=== PATIENT | female | born 1975 | race Caucasian/White ===

== ENCOUNTER 2019-08-01 12:07 | Inpatient (IN) | payer OTHER ==
[2019-08-01 14:40] VITALS: BMI 36.2
--- NOTE | 2019-08-01 16:05 | HP ---
CIWA Score Nausea/Vomitin Muscle Tremors: 4-Moderate,w/Arms Extend Anxiety: 1-Mildly Anxious Agitation: 0-Normal Activity Paroxysmal Sweats: 2 Orientation: 0-Oriented Tacttile Disturbances: 0-None Auditory Disturbances: 0-None Visual Disturbances: 0-None Headache: 3-Moderate CIWA-Ar Total Score: 13 - Admission Criteria OASAS Guidelines: Admission for Medically Managed Detox: Requires at least one of the followin. CIWA greater than 12 2. Seizures within the past 24 hours 3. Delirium tremens within the past 24 hours 4. Hallucinations within the past 24 hours 5. Acute intervention needed for co occurring medical disorder 6. Acute intervention needed for co occurring psychiatric disorder 7. Severe withdrawal that cannot be handled at a lower level of care (continued vomiting, continued diarrhea, abnormal vital signs) requiring intravenous medication and/or fluids 8. Admission ROS [facility] Chief Complaint: "plan for both detox and rehab" Allergies/Adverse Reactions: Allergies Allergy/AdvReac Type Severity Reaction Status Date / Time aspirin Allergy Verified 08/01/19 14:33 sulfamethoxazole Allergy Verified 08/01/19 14:32 [From Bactrim] trimethoprim [From Bactrim] Allergy Verified 08/01/19 14:32 History of Present Illness: 44 year old female with a past medical history of asthma, thalassemia/sickle cell trait and alcohol abuse presents for both detox and rehab. Was recently in detox at [facility] last Monday and discharged last . That was her first detox. Took the same dose of librium all of those days, after she left detox, she experienced symptoms. Alcohol: last drink yesterday (6 pack beer), had not drank from detox until yesterday. Has tremors. Denies alcohol withdrawal seizures. 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 Loss EENT: reports: Nose Congestion Respiratory: reports: Cough, Shortness of Breath Cardiac: reports: Lightheadedness GI: reports: Diarrhea, Nausea : reports: No Symptoms Reported Musculoskeletal: reports: Back Pain, Joint Pain Integumentary: reports: No Symptoms Reported Neuro: reports: Headache Endocrine: reports: No Symptoms Reported Hematology: reports: Anemia (Thalassemia/sickle cell trait) Psychiatric: reports: Judgement Intact, Mood/Affect Appropiate, Orientated x3, Depressed Patient History - Substances abused Alcohol Frequency: Daily Amount used: 18 PACK BEER Age of first use: 16 Date of last use: 07/31/19 Admission Physical Exam BHS - Vital Signs Vital Signs: Vital Signs - 24 hr 08/01/19 08/01/19 14:33 15:19 Temperature 98.7 F 98.7 F Pulse Rate 76 76 Respiratory 18 18 Rate Blood Pressure 122/90 122/90 Urine Drug Screen - Test Device Lot number: [id number] Expiration date: 03/29/21 - Control Is test valid?: Yes - Results Urine drug screen results: BZO-Benzodiazepines
[2019-08-01] MEDS ORDERED: BISMUTH SUBSALICYLATE 524 MG/30 ML UD PO PRN (16:22)
[2019-08-01] MEDS ORDERED: MAG HYDROX/AL HYDROX/SIMETH 30 ML UNIT-DOSE CUP PO PRN (16:22)
[2019-08-01] MEDS ORDERED: chlordiazePOXIDE HCL 10 MG CAPSULE PO PRN (16:22)
[2019-08-01] MEDS ORDERED: MAGNESIUM HYDROX 2400MG/30ML ORAL SUSPENSION 30 ML CUP PO PRN (16:22)
[2019-08-01] MEDS ORDERED: MENTHOL/PHENOL 1 EACH UD MM PRN (16:22)
[2019-08-01] MEDS ORDERED: hydrOXYzine PAMOATE 25 MG CAPSULE (FP) PO PRN (16:22)
[2019-08-01] MEDS ORDERED: IBUPROFEN 400 MG TABLET (FP) PO PRN (16:22)
[2019-08-01] MEDS ORDERED: MELATONIN 5 MG TABLETS PO PRN (16:22)
[2019-08-01] MEDS ORDERED: ACETAMINOPHEN 325 MG TABLET (FP) PO PRN ×2 (16:22)
[2019-08-01] MEDS ORDERED: MAGNESIUM CITRATE 300 ML BOTTLE PO PRN (16:22)
[2019-08-01] MEDS ORDERED: METHOCARBAMOL 500 MG TABLET PO PRN (16:22)
--- NOTE | 2019-08-01 16:29 | PN ---
Teaching Attending Note Name of Resident: Lawrence Nuñez ATTENDING PHYSICIAN STATEMENT I saw and evaluated the patient. I reviewed the resident's note and discussed the case with the resident. I agree with the resident's findings and plan as documented. SUBJECTIVE 44 year old female here requesting detox from etoh use , reports d /c from detox @ [facility] on 07/25 , relapsed yesterday drank 1 x 6-pk beer, usually 18- beer/day , reports tremors if not drinking , + blackouts , denies seizures, starts drinking around 5 pm when returning from work , does not drive . 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 OBJECTIVE: wnwd , CIWA 13 Vital Signs - 24 hr 08/01/19 08/01/19 14:33 15:19 Temperature 98.7 F 98.7 F Pulse Rate 76 76 Respiratory 18 18 Rate Blood Pressure 122/90 122/90 ASSESSMENT AND PLAN: Alcohol dependence - Librium detox Nicotine dependence - smoking cessation counselling .
[2019-08-01] MEDS ORDERED: chlordiazePOXIDE HCL 25 MG CAPSULE PO ONE (17:45)
[2019-08-01] MEDS: ALBUTEROL SO4 8 GM HFA INHALER IH SCH ×2 (18:13→23:47)
[2019-08-01] MEDS ORDERED: ONDANSETRON *ODT* 4 MG TABLET SL PRN (19:11)
[2019-08-01] MEDS: chlordiazePOXIDE HCL 25 MG CAPSULE PO SCH (22:12)
[2019-08-01] MEDS: THIAMINE HCL 100 MG TABLET (FP) PO SCH (22:12)
[2019-08-02] MEDS: chlordiazePOXIDE HCL 25 MG CAPSULE PO SCH ×3 (05:57→20:56)
[2019-08-02] MEDS: ALBUTEROL SO4 8 GM HFA INHALER IH SCH ×7 (05:57→23:33)
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
[2019-08-02] MEDS: SERTRALINE HCL 50 MG TABLET (FP) PO SCH (10:23)
[2019-08-02] MEDS: PRENATAL VITAMINS W/ FOLIC ACID TABLET (FP) PO SCH (10:23)
[2019-08-02 10:35] LABS: HEMATOCRIT 41.2 % (32.4-45.2); HEMOGLOBIN 13.7 GM/dL (10.7-15.3); MCH 29.3 pg (25.7-33.7); MCHC 33.3 g/dl (32.0-36.0); MEAN CELL VOLUME 87.9 fl (80-96); MEAN PLT VOLUME 7.8 fl (7.5-11.1); PLATELET COUNT 231 K/MM3 (134-434); RBC 4.69 M/mm3 (3.60-5.2); WHITE BLOOD COUNT 6.5 K/mm3 (4.0-10.0)
--- NOTE | 2019-08-02 10:50 | PN ---
S CIWA - CIWA Score Nausea/Vomitin-No Nausea/No Vomiting Muscle Tremors: 3 Anxiety: 3 Agitation: 3 Paroxysmal Sweats: 2 Orientation: 0-Oriented Tacttile Disturbances: 0-None Auditory Disturbances: 0-None Visual Disturbances: 0-None Headache: 0-None Present CIWA-Ar Total Score: 11 BHS Progress Note (SOAP) Subjective: shakes sweats body aches interrupted sleep Objective: 08/02/19 10:49 Vital Signs Temperature 96.8 F L 08/02/19 10:22 Pulse Rate 78 08/02/19 10:22 Respiratory Rate 18 08/02/19 10:22 Blood Pressure 111/73 08/02/19 10:22 O2 Sat by Pulse Oximetry (%) Laboratory Tests 08/02/19 08:00 WBC 6.5 RBC 4.69 Hgb 13.7 Hct 41.2 MCV 87.9 MCH 29.3 MCHC 33.3 RDW 18.0 H Plt Count 231 MPV 7.8 rest of labs pending aaox3 ambulating no acute distress Assessment: 08/02/19 10:50 withdrawals Plan: continue detox increase fluids pending labs
[2019-08-02 10:53] LABS: ALBUMIN 2.9 g/dl (3.4-5.0); BILIRUBIN,TOTAL 0.4 mg/dL (0.2-1); BLOOD UREA NITROGEN 5.2 mg/dL (7-18); CALCIUM 8.7 mg/dL (8.5-10.1); CREATININE 0.7 mg/dL (0.55-1.3); TOT PROT 5.7 g/dl (6.4-8.2)
[2019-08-02] MEDS: THIAMINE HCL 100 MG TABLET (FP) PO SCH (21:16)
[2019-08-02] MEDS: traZODone HCL 100 MG TABLET (FP) PO SCH (21:16)
[2019-08-03] MEDS: ALBUTEROL SO4 8 GM HFA INHALER IH SCH ×5 (05:55→21:30)
[2019-08-03] MEDS: chlordiazePOXIDE 5 MG CAPSULE PO SCH ×3 (05:56→22:42)
[2019-08-03] MEDS: SERTRALINE HCL 50 MG TABLET (FP) PO SCH (10:34)
[2019-08-03] MEDS: PRENATAL VITAMINS W/ FOLIC ACID TABLET (FP) PO SCH (10:35)
--- NOTE | 2019-08-03 14:18 | PN ---
S CIWA - CIWA Score Nausea/Vomitin-No Nausea/No Vomiting Muscle Tremors: 2 Anxiety: 2 Agitation: 0-Normal Activity Paroxysmal Sweats: 2 Orientation: 0-Oriented Tacttile Disturbances: 0-None Auditory Disturbances: 0-None Visual Disturbances: 0-None Headache: 1-Very Mild CIWA-Ar Total Score: 7 BHS Progress Note (SOAP) Subjective: c/o mild shakes, anxiety, and headache. Objective: 08/03/19 14:17 Vital Signs 08/03/19 08/03/19 09:50 13:53 Temperature 96.4 F L 98.8 F Pulse Rate 71 84 Respiratory 18 18 Rate Blood Pressure 108/76 109/70 Lab Results WBC 6.5 K/mm3 (4.0-10.0) 08/02/19 08:00 RBC 4.69 M/mm3 (3.60-5.2) 08/02/19 08:00 Hgb 13.7 GM/dL (10.7-15.3) 08/02/19 08:00 Hct 41.2 % (32.4-45.2) 08/02/19 08:00 MCV 87.9 fl (80-96) 08/02/19 08:00 MCHC 33.3 g/dl (32.0-36.0) 08/02/19 08:00 RDW 18.0 % (11.6-15.6) H 08/02/19 08:00 Plt Count 231 K/MM3 (134-434) 08/02/19 08:00 Sodium 142 mmol/L (136-145) 08/02/19 08:00 Potassium 4.0 mmol/L (3.5-5.1) 08/02/19 08:00 Chloride 108 mmol/L (98-107) H 08/02/19 08:00 Carbon Dioxide 29 mmol/L (21-32) 08/02/19 08:00 Anion Gap 5 MMOL/L (8-16) L 08/02/19 08:00 BUN 5.2 mg/dL (7-18) L 08/02/19 08:00 Creatinine 0.7 mg/dL (0.55-1.3) 08/02/19 08:00 Random Glucose 86 mg/dL (74-106) 08/02/19 08:00 Calcium 8.7 mg/dL (8.5-10.1) 08/02/19 08:00 Labs noted. Assessment: 08/03/19 14:17 AOX3, in no acute respiratory distress. Full ROM, ambulating in the unit. Withdrawal symptoms. Plan: continue detox.
[2019-08-03] MEDS: traZODone HCL 100 MG TABLET (FP) PO SCH (22:42)
[2019-08-03] MEDS: THIAMINE HCL 100 MG TABLET (FP) PO SCH (22:42)
[2019-08-04] MEDS ORDERED: chlordiazePOXIDE HCL 10 MG CAPSULE PO PRN
[2019-08-04] MEDS: ALBUTEROL SO4 8 GM HFA INHALER IH SCH ×6 (00:58→21:06)
[2019-08-04] MEDS: chlordiazePOXIDE HCL 10 MG CAPSULE PO SCH ×3 (05:27→22:34)
[2019-08-04] MEDS: SERTRALINE HCL 50 MG TABLET (FP) PO SCH (10:20)
[2019-08-04] MEDS: PRENATAL VITAMINS W/ FOLIC ACID TABLET (FP) PO SCH (10:21)
--- NOTE | 2019-08-04 17:16 | PN ---
S CIWA - CIWA Score Nausea/Vomitin-No Nausea/No Vomiting Muscle Tremors: 2 Anxiety: 1-Mildly Anxious Agitation: 0-Normal Activity Paroxysmal Sweats: 3 Orientation: 0-Oriented Tacttile Disturbances: 0-None Auditory Disturbances: 0-None Visual Disturbances: 0-None Headache: 0-None Present CIWA-Ar Total Score: 6 BHS Progress Note (SOAP) Subjective: sweats sleep disturbance Objective: 08/04/19 17:15 A & o x 3 slight tremors Vital Signs Temperature 97.3 F L 08/04/19 16:46 Pulse Rate 65 08/04/19 16:46 Respiratory Rate 16 08/04/19 16:46 Blood Pressure 102/64 08/04/19 16:46 O2 Sat by Pulse Oximetry (%) Assessment: 08/04/19 17:15 withdrawal sx Plan: continue detox for d/c in a.m
[2019-08-04] MEDS: THIAMINE HCL 100 MG TABLET (FP) PO SCH (22:33)
[2019-08-04] MEDS: traZODone HCL 100 MG TABLET (FP) PO SCH (23:26)
[2019-08-05] MEDS: ALBUTEROL SO4 8 GM HFA INHALER IH SCH ×3 (01:39→09:28)
[2019-08-05] MEDS ORDERED: chlordiazePOXIDE HCL 10 MG CAPSULE PO ONE (05:00)
[2019-08-05 09:17] VITALS: BP 102/65; PULSE 93; TEMP 96.1
[2019-08-05] MEDS: SERTRALINE HCL 50 MG TABLET (FP) PO SCH (09:28)
--- NOTE | 2019-08-05 09:30 | DS ---
[facility] Detox Discharge Summary Admission Date: 08/01/19 Discharge Date: 08/05/19 - History Present History: Alcohol Dependence - Physical Exam Results Vital Signs: Vital Signs Temperature 96.1 F L 08/05/19 09:16 Pulse Rate 93 H 08/05/19 09:16 Respiratory Rate 18 08/05/19 09:16 Blood Pressure 102/65 08/05/19 09:16 O2 Sat by Pulse Oximetry (%) Pertinent Admission Physical Exam Findings: pt arrived in withdrawals Laboratory Tests 08/02/19 08/02/19 08/02/19 08:00 08:00 08:00 WBC 6.5 RBC 4.69 Hgb 13.7 Hct 41.2 MCV 87.9 MCH 29.3 MCHC 33.3 RDW 18.0 H Plt Count 231 MPV 7.8 Sodium 142 Potassium 4.0 Chloride 108 H Carbon Dioxide 29 Anion Gap 5 L BUN 5.2 L Creatinine 0.7 Est GFR (CKD-EPI)AfAm 123.86 Est GFR (CKD-EPI)NonAf 106.87 Random Glucose 86 Calcium 8.7 Total Bilirubin 0.4 AST 34 ALT 50 Alkaline Phosphatase 75 Total Protein 5.7 L Albumin 2.9 L RPR Titer Nonreactive today pt is aaox3 ambulating no acute distress no s/s of withdrawals - Treatment Hospital Course: Detox Protocol Followed, Detoxed Safely, Responded well, Discharged Condition Good, Rehab Referral Accepted - Medication Discharge Medications: Ambulatory Orders Albuterol Sulfate Inhaler - [Ventolin Hfa Inhaler -] 1 - 2 inh PO Q4H 08/01/19 Sertraline HCl [Zoloft] 100 mg PO DAILY 08/01/19 traZODone HCL [Trazodone HCl] 100 mg PO HS 08/01/19 - Diagnosis (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
== END 2019-08-05 09:30 | disposition home or self-care (01) | DRG 775 ==
LOC: YASAS 12:07 → Y6N 16:54
PROVIDERS: ADMIT Surgery; ATTEND Surgery
PROC: HZ2ZZZZ Detoxification Services for Substance Abuse Treatment (ICD-10-PCS; principal; 2019-08-01)
DX: F10.230 Alcohol dependence with withdrawal, uncomplicated (principal); F10.280 Alcohol dependence with alcohol-induced anxiety disorder; F10.282 Alcohol dependence with alcohol-induced sleep disorder; F17.210 Nicotine dependence, cigarettes, uncomplicated; F32.9 Major depressive disorder, single episode, unspecified; D57.3 Sickle-cell trait; J45.909 Unspecified asthma, uncomplicated; Z62.810 Personal history of physical and sexual abuse in childhood; Z88.6 Allergy status to analgesic agent; Z88.2 Allergy status to sulfonamides; Z88.8 Allergy status to other drugs, medicaments and biological substances
CPT/HCPCS: 36415; 80053; 85027; 86593; Q0162

== ENCOUNTER 2020-11-11 10:35 | Inpatient (IN) | payer OTHER ==
[2020-11-11 11:20] VITALS: BMI 40.4
[2020-11-11] MEDS ORDERED: ONDANSETRON *ODT* 4 MG TABLET SL PRN (12:05)
[2020-11-11] MEDS ORDERED: MAG HYDROX/AL HYDROX/SIMETH 30 ML UNIT-DOSE CUP PO PRN (12:05)
[2020-11-11] MEDS ORDERED: BISMUTH SUBSALICYLATE 524 MG/30 ML UD PO PRN (12:05)
[2020-11-11] MEDS ORDERED: IBUPROFEN 400 MG TABLET (FP) PO PRN (12:05)
[2020-11-11] MEDS ORDERED: ACETAMINOPHEN 325 MG TABLET (FP) PO PRN ×2 (12:05)
[2020-11-11] MEDS ORDERED: MAGNESIUM CITRATE 300 ML BOTTLE PO PRN (12:05)
[2020-11-11] MEDS ORDERED: MENTHOL/PHENOL 1 EACH UD MM PRN (12:05)
[2020-11-11] MEDS ORDERED: MAGNESIUM HYDROX 2400MG/30ML ORAL SUSPENSION 30 ML CUP PO PRN (12:05)
[2020-11-11] MEDS ORDERED: chlordiazePOXIDE HCL 25 MG CAPSULE PO PRN (12:05)
[2020-11-11] MEDS ORDERED: NICOTINE POLACRILEX 2 MG GUM BUC PRN (12:05)
[2020-11-11] MEDS: NICOTINE 21 MG/24 HOURS TOPICAL PATCH TD SCH (13:23)
[2020-11-11] MEDS: hydrOXYzine PAMOATE 25 MG CAPSULE (FP) PO SCH ×3 (13:23→22:31)
[2020-11-11 18:22] LABS: HEMATOCRIT 44.5 % (32.4-45.2); HEMOGLOBIN 14.6 GM/dL (10.7-15.3); MCH 31.1 pg (25.7-33.7); MCHC 32.8 g/dl (32.0-36.0); MEAN CELL VOLUME 94.8 fl (80-96); MEAN PLT VOLUME 7.3 fl (7.5-11.1); PLATELET COUNT 221 K/MM3 (134-434); RBC 4.69 M/mm3 (3.60-5.2); RDW 14.4 % (11.6-15.6); WHITE BLOOD COUNT 6.2 K/mm3 (4.0-10.0)
[2020-11-11] MEDS: chlordiazePOXIDE HCL 25 MG CAPSULE PO SCH ×2 (18:24→22:30)
[2020-11-11 18:44] LABS: ALBUMIN 3.5 g/dl (3.4-5.0); BILIRUBIN,TOTAL 0.3 mg/dL (0.2-1); CALCIUM 8.9 mg/dL (8.5-10.1); CREATININE 0.6 mg/dL (0.55-1.3); POTASSIUM 4.1 mmol/L (3.5-5.1); TOT PROT 7.4 g/dl (6.4-8.2)
[2020-11-11 19:20] LABS: HIV INTERPRETATION NEGATIVE (NEGATIVE)
[2020-11-11] MEDS ORDERED: MASKS NR ONE (21:39)
[2020-11-11] MEDS: traZODone HCL 100 MG TABLET (FP) PO SCH (22:30)
[2020-11-11] MEDS: THIAMINE HCL 100 MG TABLET (FP) PO SCH (22:31)
[2020-11-11] MEDS: MELATONIN 5 MG TABLETS PO SCH (22:31)
[2020-11-11] MEDS: ALBUTEROL SO4 HFA INHALER IH PRN (22:32)
[2020-11-12] MEDS: chlordiazePOXIDE HCL 25 MG CAPSULE PO SCH ×4 (06:18→22:10)
[2020-11-12] MEDS: hydrOXYzine PAMOATE 25 MG CAPSULE (FP) PO SCH ×2 (06:19→10:31)
[2020-11-12] MEDS: ALBUTEROL SO4 HFA INHALER IH PRN ×2 (06:36→17:17)
[2020-11-12] MEDS: PRENATAL VITAMINS W/ FOLIC ACID TABLET (FP) PO SCH (10:30)
[2020-11-12] MEDS: NICOTINE 21 MG/24 HOURS TOPICAL PATCH TD SCH (10:31)
[2020-11-12] MEDS ORDERED: hydrOXYzine PAMOATE 25 MG CAPSULE (FP) PO PRN (12:25)
[2020-11-12] MEDS ORDERED: ACETAMINOPHEN 325 MG TABLET (FP) PO PRN (12:29)
[2020-11-12] MEDS: LIDOCAINE 5% TOPICAL PATCH TP SCH (13:08)
[2020-11-12] MEDS: LIDOCAINE PATCH REMOVAL MC SCH (22:10)
[2020-11-12] MEDS: THIAMINE HCL 100 MG TABLET (FP) PO SCH (22:11)
[2020-11-12] MEDS: MELATONIN 5 MG TABLETS PO SCH (22:11)
[2020-11-12] MEDS: traZODone HCL 100 MG TABLET (FP) PO SCH (22:11)
[2020-11-13] MEDS: chlordiazePOXIDE HCL 25 MG CAPSULE PO SCH ×4 (05:54→22:19)
[2020-11-13] MEDS: ALBUTEROL SO4 HFA INHALER IH PRN (06:04)
[2020-11-13] MEDS: PRENATAL VITAMINS W/ FOLIC ACID TABLET (FP) PO SCH (10:31)
[2020-11-13] MEDS: LIDOCAINE 5% TOPICAL PATCH TP SCH (10:31)
[2020-11-13] MEDS: NICOTINE 21 MG/24 HOURS TOPICAL PATCH TD SCH (10:32)
[2020-11-13] MEDS: METHOCARBAMOL 500 MG TABLET PO PRN ×2 (10:32→17:28)
[2020-11-13] MEDS ORDERED: METHYL SALICYLATE/MENTHOL OINT 30 GM TUBE TP SCH (22:00)
[2020-11-13] MEDS: traZODone HCL 100 MG TABLET (FP) PO SCH (22:18)
[2020-11-13] MEDS: LIDOCAINE PATCH REMOVAL MC SCH (22:18)
[2020-11-13] MEDS: THIAMINE HCL 100 MG TABLET (FP) PO SCH (22:18)
[2020-11-13] MEDS: MELATONIN 5 MG TABLETS PO SCH (22:18)
[2020-11-14] MEDS ORDERED: chlordiazePOXIDE HCL 10 MG CAPSULE PO PRN
[2020-11-14] MEDS: ALBUTEROL SO4 HFA INHALER IH PRN ×2 (02:54→10:18)
[2020-11-14] MEDS: chlordiazePOXIDE HCL 10 MG CAPSULE PO SCH ×4 (06:10→22:15)
[2020-11-14] MEDS: METHOCARBAMOL 500 MG TABLET PO PRN ×2 (06:11→17:53)
[2020-11-14] MEDS: PRENATAL VITAMINS W/ FOLIC ACID TABLET (FP) PO SCH (10:16)
[2020-11-14] MEDS: LIDOCAINE 5% TOPICAL PATCH TP SCH (10:16)
[2020-11-14] MEDS: NICOTINE 21 MG/24 HOURS TOPICAL PATCH TD SCH (10:16)
[2020-11-14] MEDS: MELATONIN 5 MG TABLETS PO SCH (22:16)
[2020-11-14] MEDS: traZODone HCL 100 MG TABLET (FP) PO SCH (22:17)
[2020-11-14] MEDS: THIAMINE HCL 100 MG TABLET (FP) PO SCH (22:17)
[2020-11-14] MEDS: LIDOCAINE PATCH REMOVAL MC SCH (22:19)
[2020-11-15] MEDS: chlordiazePOXIDE HCL 10 MG CAPSULE PO SCH ×2 (06:17→17:43)
[2020-11-15] MEDS: ALBUTEROL SO4 HFA INHALER IH PRN ×2 (06:30→17:44)
[2020-11-15] MEDS: METHOCARBAMOL 500 MG TABLET PO PRN ×2 (06:30→17:44)
[2020-11-15] MEDS: PRENATAL VITAMINS W/ FOLIC ACID TABLET (FP) PO SCH (09:46)
[2020-11-15] MEDS: LIDOCAINE 5% TOPICAL PATCH TP SCH (09:46)
[2020-11-15] MEDS: NICOTINE 21 MG/24 HOURS TOPICAL PATCH TD SCH (09:47)
[2020-11-15] MEDS: traZODone HCL 100 MG TABLET (FP) PO SCH (22:08)
[2020-11-15] MEDS: THIAMINE HCL 100 MG TABLET (FP) PO SCH (22:09)
[2020-11-15] MEDS: LIDOCAINE PATCH REMOVAL MC SCH (22:09)
[2020-11-15] MEDS: MELATONIN 5 MG TABLETS PO SCH (22:09)
[2020-11-16] MEDS ORDERED: chlordiazePOXIDE HCL 10 MG CAPSULE PO ONE (05:00)
[2020-11-16] MEDS: METHOCARBAMOL 500 MG TABLET PO PRN (06:19)
[2020-11-16 09:00] VITALS: BP 106/76; PULSE 87; TEMP 96.8
[2020-11-16] MEDS: NICOTINE 21 MG/24 HOURS TOPICAL PATCH TD SCH (10:50)
[2020-11-16] MEDS: PRENATAL VITAMINS W/ FOLIC ACID TABLET (FP) PO SCH (10:50)
[2020-11-16] MEDS: LIDOCAINE 5% TOPICAL PATCH TP SCH (10:50)
[2020-11-16 12:08] LABS: SGOT/AST 41 U/L (15-37); SGPT/ALT 69 U/L (13-61)
== END 2020-11-16 09:22 | disposition home or self-care (01) | DRG 775 ==
LOC: YASAS 10:35 → Y3N 12:20
PROVIDERS: ADMIT Allergy & Immunology; ATTEND Allergy & Immunology
PROC: HZ2ZZZZ Detoxification Services for Substance Abuse Treatment (ICD-10-PCS; principal; 2020-11-11)
DX: F10.230 Alcohol dependence with withdrawal, uncomplicated (principal); F10.220 Alcohol dependence with intoxication, uncomplicated; F17.210 Nicotine dependence, cigarettes, uncomplicated; F10.280 Alcohol dependence with alcohol-induced anxiety disorder; F10.282 Alcohol dependence with alcohol-induced sleep disorder; F41.9 Anxiety disorder, unspecified; F32.9 Major depressive disorder, single episode, unspecified; J45.909 Unspecified asthma, uncomplicated; D64.9 Anemia, unspecified; M34.9 Systemic sclerosis, unspecified; R74.01 Elevation of levels of liver transaminase levels; Z62.810 Personal history of physical and sexual abuse in childhood; Z87.19 Personal history of other diseases of the digestive system; Z88.6 Allergy status to analgesic agent; Z88.2 Allergy status to sulfonamides; Z91.013 Allergy to seafood; Z90.49 Acquired absence of other specified parts of digestive tract; Z98.84 Bariatric surgery status; Z91.410 Personal history of adult physical and sexual abuse; Z91.5 Personal history of self-harm
CPT/HCPCS: 36415; 80053; 84450; 84460; 85027; 86780; 87389; C9803; Q0162; U0003